=== PATIENT | male | born 1990 | race Caucasian/White ===

== ENCOUNTER 2021-05-28 10:01 | Emergency (ER) | payer BC ==
--- NOTE | 2021-05-28 10:40 | EDM.PDOC ---
ED HPI GENERAL MEDICAL PROBLEM - General Chief Complaint: General Stated Complaint: STROKE CODE Time Seen by Provider: 05/28/21 10:20 Source of Information: Reports: Patient, EMS History Limitations: Reports: No Limitations - History of Present Illness INITIAL COMMENTS - FREE TEXT/NARRATIVE: 31-year-old white male that presents via EMS after he was picked up on the roadside while he was driving after he called 911 secondary to ongoing bilateral hand bilateral feet numbness and lip numbness that started approximately 45 minutes or so prior to arrival while he was driving. He felt that the right side of his upper extremity was a little weak and then the numbness started then afterwards. He states now that the weakness is gone but the numbness is still there. He said he had a little bit of dizziness and lightheadedness today that lasted for a few minutes and then went away. Last night though he had a feeling of a fast heart rate and slightly elevated blood pressure 150/82 heart rate of 98 last night and said he had a headache that was about a 5 out of 10 in the middle of his head but he was able to lay down and it went away after 10 or 15 minutes he has no headache right now He states that he did get his Covid shot Saturday but did not have any problems afterwards He has no medical problems takes no medication does not smoke does not use any drugs he states he did have one drink at noon yesterday He has no other complaints at this time he has no family history of any stroke or hypertension or coronary artery disease Onset: Today, Sudden Duration: Hour(s): Associated Symptoms: Reports: Weakness. Denies: Confusion, Chest Pain, Cough, cough w sputum, Diaphoresis, Fever/Chills, Headaches, Loss of Appetite, Shortness of Breath ED ROS GENERAL - Review of Systems Review Of Systems: See Below Constitutional: Reports: No Symptoms HEENT: Reports: No Symptoms Respiratory: Reports: No Symptoms Cardiovascular: Reports: Lightheadedness, Other (Denies palpitations positive for fast heart rate) Endocrine: Reports: No Symptoms GI/Abdominal: Reports: No Symptoms : Reports: No Symptoms Musculoskeletal: Denies: Hand Pain, Muscle Pain, Muscle Stiffness Skin: Reports: No Symptoms Neurological: Reports: Dizziness, Headache, Numbness. Denies: Confusion, Paresthesia, Pre-Existing Deficit, Seizure, Syncope, Tingling, Difficulty Walking, Weakness Psychiatric: Reports: No Symptoms Hematologic/Lymphatic: Reports: No Symptoms Immunologic: Reports: No Symptoms ED EXAM, NEURO - Physical Exam Exam: See Below Exam Limited By: No Limitations General Appearance: Alert, WD/WN, No Apparent Distress, Other (Patient appears alert and is able to move his self from the EMS stretcher over to the bed ) Eye Exam: Bilateral Eye: EOMI, Normal Inspection, PERRL Ears: Normal External Exam, Normal Canal, Hearing Grossly Normal, Normal TMs Nose: Normal Inspection, Normal Mucosa, No Blood Throat/Mouth: Normal Inspection, Normal Lips, Normal Teeth, Normal Gums, Normal Oropharynx, Normal Voice Head Exam: Atraumatic, Normocephalic Neck: Normal Inspection, Supple, Non-Tender, Full Range of Motion Respiratory/Chest: No Respiratory Distress, Lungs Clear, Normal Breath Sounds, No Accessory Muscle Use, Chest Non-Tender Cardiovascular: Normal Peripheral Pulses, Regular Rate, Rhythm, No Edema, No Gallop, No JVD, No Murmur, No Rub GI/Abdominal: Normal Bowel Sounds, Soft, Non-Tender, No Organomegaly, No Distention. No: Guarding, Rigid, Rebound, Tender Neurological: Alert, Normal Mood/Affect, Normal Dorsiflexion, CN II-XII Intact, Normal Plantar Flexion, Normal Gait, Normal Reflexes, No Motor/Sensory Deficits, Oriented x 3, Other (Patient has no pronator sway equal bending shed worker bilateral strength is graded 5 of 5 upper lower extremity bilateral he has equal facial sensation 2+ DTR no weakness noted) Extremities: Normal Inspection, Normal Range of Motion, Non-Tender, No Pedal Edema, Normal Capillary Refill Psychiatric: Normal Affect, Normal Mood Skin Exam: Warm, Dry, Intact, Normal Color, No Rash *Q Meaningful Use (ADM) - VTE *Q VTE Criteria *Q: Patient has no risk factors do not believe this is stroke related - VTE Risk Assess *Q Each Risk Factor Represents 1 Point: None Total Score 1 Point Risk Factors: 0 Each Risk Factor Represents 2 Points: None Total Score 2 Point Risk Factors: 0 Each Risk Factor Represents 3 Points: None Total Score 3 Point Risk Factors: 0 Each Risk Factor Represents 5 Points: None Total Score 5 Point Risk Factors: 0 Venous Thromboembolism Risk Factor Score *Q: 0 Course - Vital Signs Text/Narrative:: CT head without contrast CBC BMP coags EKG STAR stroke scale 0 Per radiology no acute findings on CT head CBC within normal limits BMP electrolytes within normal limits anion gap is 22 glucose 119 1 L normal saline bolus rechecked patient 0 again on stroke scale after speaking with the neurologist he also agrees this is not stroke symptoms second bag normal saline given patient will be discharged when his father arrives here at the hospital Spoke with Dr. PARR stroke neurology at 1140 does not believe this is stroke related may possibly be migraine related or possible seizure can be followed up worked up outpatient have them call the office for an appointment [phone] Last Recorded V/S: Last Vital Signs Temp 37.2 C 05/28/21 10:59 Pulse 96 05/28/21 10:59 Resp 18 05/28/21 10:59 BP 113/60 05/28/21 10:59 Pulse Ox 98 05/28/21 10:59 - Orders/Labs/Meds Orders: Active Orders 24 hr Category Date Time Status EKG 12 Lead [EKG Documentation Completion] [RC] STAT Care 05/28/21 10:33 Active Labs: Laboratory Tests 05/28/21 05/28/21 05/28/21 Range/Units 10:28 10:28 10:28 WBC 7.6 (4.0-10.0) x10^3/uL RBC 5.77 (4.5-6.0) x10^6/uL Hgb 16.4 (14.0-18.0) g/dL Hct 45.9 (40.0-52.0) % MCV 79.5 (78.0-93.0) fL MCH 28.4 (26.0-32.0) pg MCHC 35.7 (32.0-36.0) g/dL RDW Coeff of Margy 12.3 (10.0-15.0) % Plt Count 288 (130-400) x10^3/uL Immature Gran % (Auto) 0.00 (0.00-0.43) % Neut % (Auto) 75.5 (50.0-80.0) % Lymph % (Auto) 17.3 L (25.0-50.0) % [place] % (Auto) 6.4 (2.0-11.0) % Eos % (Auto) 0.3 (0.0-4.0) % Baso % (Auto) 0.5 (0.2-1.2) % Neut # (Auto) 5.8 (1.8-7.7) x10^3/uL Lymph # (Auto) 1.3 (1.0-4.8) x10^3/uL [place] # (Auto) 0.5 (0.0-0.8) x10^3/uL Eos # (Auto) 0.0 (0.0-0.5) x10^3/uL Baso # (Auto) 0.0 (0.0-0.2) x10^3/uL Immature Gran # (Auto) 0.00 (0.00-0.07) x10^3/uL PT 11.1 (9.9-12.5) SEC INR 1.0 L (2.0-3.5) Sodium 143 (136-145) mmol/L Potassium 3.5 (3.5-5.1) mmol/L Chloride 104 (98-107) mmol/L Carbon Dioxide 20 L (21-32) mmol/L Anion Gap 22.5 H (5-15) mmol/L BUN 15 (7-18) mg/dL Creatinine 1.2 (0.70-1.30) mg/dL Est Cr Clr Drug Dosing TNP Estimated GFR (MDRD) > 60 Glucose 119 H (70-99) mg/dL Calcium 9.6 (8.5-10.1) mg/dL Departure - Departure Time of Disposition: 11:50 Disposition: Home, Self-Care 01 Preliminary Cause of *Q: Other_Special Instruction (Patient is alive and well) Condition: Good Clinical Impression: Weakness, Numbness - Discharge Information *PRESCRIPTION DRUG MONITORING PROGRAM REVIEWED*: No *COPY OF PRESCRIPTION DRUG MONITORING REPORT IN PATIENT TALI: No Referrals: Buddy Vasquez MD [Primary Care Provider] - Forms: ED Department Discharge Sepsis Event Note (ED) - Focused Exam Vital Signs: Vital Signs Temp Pulse Resp BP Pulse Ox 05/28/21 10:59 37.2 C 96 18 113/60 98 - Problem List & Annotations (1) Numbness SNOMED Code(s): 02413650 Code(s): R20.0 - ANESTHESIA OF SKIN Status: Acute Current Visit: Yes (2) Weakness SNOMED Code(s): 88322922 Code(s): R53.1 - WEAKNESS Status: Acute Current Visit: Yes - My Orders Last 24 Hours: My Active Orders 05/28/21 10:33 EKG 12 Lead [EKG Documentation Completion] [RC] STAT - Assessment/Plan Last 24 Hours: My Active Orders 05/28/21 10:33 EKG 12 Lead [EKG Documentation Completion] [RC] STAT
[2021-05-28 10:45] LABS: CHLORIDE,CL 104 mmol/L (98-107); SODIUM,NA 143 mmol/L (136-145)
[2021-05-28 10:46] LABS: ANION GAP 22.5 mmol/L (5-15)
--- NOTE | 2021-05-28 11:36 | CT ---
[id number] CT/CT Head Stroke Protocol EXAM: CT Head Stroke Protocol CLINICAL DATA: QUESTION WEAKNESS RIGHT ARM, HAND. COMPARISON STUDY: None FINDINGS: No intracranial hemorrhage, extra-axial fluid collection, mass, or acute ischemia. Soft tissues are unremarkable. Paranasal sinuses and mastoid air cells are clear. IMPRESSION: No acute intracranial findings. Memo Ambriz DO 05/28/21 1135 Thank you for allowing us to participate in the care of your patient.
== END 2021-05-28 12:33 | disposition home or self-care (01) ==
LOC: VM.ED 10:01
DX: R20.0 Anesthesia of skin (principal); R53.1 Weakness
CPT/HCPCS: 70450; 80048; 85025; 85610; 93005; 99284; 99285-25

== ENCOUNTER 2021-06-16 14:28 | Emergency (ER) | payer BC ==
--- NOTE | 2021-06-16 14:50 | EDM.PDOC ---
ED HPI GENERAL MEDICAL PROBLEM - General Chief Complaint: Cardiovascular Problem Stated Complaint: NUMNESS IN THE RT ARM Time Seen by Provider: 06/16/21 14:33 Source of Information: Reports: Patient History Limitations: Reports: No Limitations - History of Present Illness INITIAL COMMENTS - FREE TEXT/NARRATIVE: Moises is a 31 year old male who presents to ER with complaints of elevated blood pressure, headache and left arm numbness. States since he had his covid vaccine 3 weeks ago, has had intermittent symptoms of this. At times, will have bilateral headache, lasts a short time and then goes away. Describes headache as a numbness around his left eye. Left arm also feels numb but has good range of motion and sensation. Blood pressure at home was 147 systolic, relates high for him. Was seen in the ER 3 weeks ago as was driving and felt like his arms and legs were going numb. Had work up that included a CT, NIH score was 0, no abnormal findings found. Was advised to contact neurology if symptoms persisted. has an appointment with his usual doctor on Saturday in [place] for follow up. Currently on no medications. Has noted that caffeine is limiting to him since the vaccine as will cause his heart rate to race and had never done that before. No shortness of breath. No nausea/vomiting or abdominal pain. No double or blurred vision. No sore throat, sinus congestion or fever. No urinary symptoms. Onset: Today, Gradual Duration: Week(s):, Waxing/Waning Location: Reports: Head, Upper Extremity, Left Quality: Reports: Other (numbness) Associated Symptoms: Reports: Confusion (states slow to process or concentrate at times). Denies: Chest Pain, Cough, Fever/Chills, Loss of Appetite, Nausea/Vomiting, Shortness of Breath Headache Pain Score (Numeric/FACES): 3 - Related Data Allergies Allergy/AdvReac Type Severity Reaction Status Date / Time No Known Allergies Allergy Verified 06/16/21 15:09 Home Meds: Home Meds . [No Known Home Meds] 06/16/21 [History] Past Medical History - Past Health History Medical/Surgical History: Denies Medical/Surgical History Social & Family History - Tobacco Use Tobacco Use Status *Q: Never Tobacco User ED ROS GENERAL - Review of Systems Review Of Systems: See Below Constitutional: Reports: Malaise. Denies: Fever, Chills, Weakness, Fatigue, Decreased Appetite HEENT: Denies: Ear Pain, Rhinitis, Sinus Problem, Throat Pain, Vision Change Respiratory: Denies: Shortness of Breath, Cough Cardiovascular: Denies: Chest Pain, Edema, Lightheadedness Endocrine: Denies: Fatigue GI/Abdominal: Denies: Abdominal Pain, Nausea, Vomiting : Reports: No Symptoms Musculoskeletal: Reports: No Symptoms Skin: Reports: No Symptoms Neurological: Reports: Numbness (left arm and face) ED EXAM, GENERAL - Physical Exam Exam: See Below Exam Limited By: No Limitations General Appearance: Alert, WD/WN, No Apparent Distress Eye Exam: Bilateral Eye: EOMI, PERRL Ears: Normal External Exam, Normal TMs Nose: Normal Inspection, Normal Mucosa, No Blood Throat/Mouth: Normal Inspection, Normal Oropharynx Head: Normocephalic Neck: Normal Inspection, Supple, Non-Tender Respiratory/Chest: No Respiratory Distress, Lungs Clear, Normal Breath Sounds Cardiovascular: Regular Rate, Rhythm GI/Abdominal: Normal Bowel Sounds, Soft, Non-Tender Extremities: Normal Inspection, Normal Range of Motion, No Pedal Edema, Other (strengths are equal bilaterally. ) Neurological: Alert, Oriented, CN II-XII Intact, Normal Cognition, Normal Gait, Normal Reflexes, No Motor/Sensory Deficits, Other (is slow to enunciate his concerns at times but oriented and answers all questions appropriately) Psychiatric: Anxious Skin Exam: Warm, Dry #1 Interpretation EKG Date: 06/16/21 Rhythm: NSR [place]: Normal P-Wave: Present QRS: Normal ST-T: Normal QT: Normal Comparison: Change From Previous EKG (PVCs resolved today in comparison to EKG from the ) Course - Vital Signs Last Recorded V/S: Last Vital Signs Temp 97.2 F 06/16/21 14:35 Pulse 82 06/16/21 15:34 Resp 16 06/16/21 15:34 BP 150/84 H 06/16/21 15:34 Pulse Ox 98 06/16/21 14:35 - Orders/Labs/Meds Labs: Laboratory Tests 06/16/21 06/16/21 Range/Units 15:00 15:00 WBC 9.4 (4.0-10.0) x10^3/uL RBC 4.95 (4.5-6.0) x10^6/uL Hgb 14.2 D (14.0-18.0) g/dL Hct 40.9 (40.0-52.0) % MCV 82.6 D (78.0-93.0) fL MCH 28.7 (26.0-32.0) pg MCHC 34.7 (32.0-36.0) g/dL RDW Coeff of Margy 12.6 (10.0-15.0) % Plt Count 246 (130-400) x10^3/uL Immature Gran % (Auto) 0.10 (0.00-0.43) % Neut % (Auto) 63.7 (50.0-80.0) % Lymph % (Auto) 24.3 L (25.0-50.0) % [place] % (Auto) 9.5 (2.0-11.0) % Eos % (Auto) 1.9 (0.0-4.0) % Baso % (Auto) 0.5 (0.2-1.2) % Neut # (Auto) 6.0 (1.8-7.7) x10^3/uL Lymph # (Auto) 2.3 (1.0-4.8) x10^3/uL [place] # (Auto) 0.9 H (0.0-0.8) x10^3/uL Eos # (Auto) 0.2 (0.0-0.5) x10^3/uL Baso # (Auto) 0.1 (0.0-0.2) x10^3/uL Immature Gran # (Auto) 0.01 (0.00-0.07) x10^3/uL Sodium 144 (136-145) mmol/L Potassium 3.7 (3.5-5.1) mmol/L Chloride 105 (98-107) mmol/L Carbon Dioxide 27 (21-32) mmol/L Anion Gap 15.7 H (5-15) mmol/L BUN 13 (7-18) mg/dL Creatinine 1.1 (0.70-1.30) mg/dL Est Cr Clr Drug Dosing 95.52 mL/min Estimated GFR (MDRD) > 60 Glucose 96 (70-99) mg/dL Calcium 8.8 (8.5-10.1) mg/dL Corrected Calcium 8.9 (8.5-10.1) mg/dL Total Bilirubin 0.3 (0.2-1.0) mg/dL AST 16 (15-37) U/L ALT 22 (16-63) U/L Alkaline Phosphatase 61 (46-116) U/L Lactate Dehydrogenase 161 (85-227) U/L Creatine Kinase 113 (39-308) U/L Troponin I High Sens 5 (<=76) ng/L C-Reactive Protein < 0.2 (<=0.9) mg/dL Total Protein 7.1 (6.4-8.2) g/dL Albumin 3.9 (3.4-5.0) g/dL Globulin 3.2 Albumin/Globulin Ratio 1.22 - Re-Assessments/Exams Free Text/Narrative Re-Assessment/Exam: 06/16/21 15:38 Patient called as felt arm "was going to blow off" from the blood draw. Blood pressure taken and normal on that arm. No signs of swelling or bleedin g/bruising. Patient is concerned that could get myocarditis or have something wrong with his autonomic nervous system from the vaccine. Discussed anxiety and issues it causes with elevation of blood pressure. Advised to not take frequently throughout day as will likely keep increasing from the stressor of it. Labs are all normal. EKG normal. Advised to follow up with his primary and can determine if more testing is needed depending on persistent symptoms. Reassurance from an emergency stand point that everything appears normal today. Departure - Departure Time of Disposition: 15:41 Disposition: Home, Self-Care 01 Clinical Impression: Arm numbness left Instructions: General Headache Without Cause, [id number] Forms: ED Department Discharge Additional Instructions: 1. Rest 2. Push fluids 3. Avoid excessive caffeine, salt, alcohol as may cause increase in blood pressure. 4. Follow up with Dr. Rodriguez as planned as may need further testing to rule out migraine, impingement causing arm numbness, any cardiac concerns Sepsis Event Note (ED) - Focused Exam Vital Signs: Vital Signs Temp Pulse Resp BP Pulse Ox 06/16/21 15:34 82 16 150/84 H 06/16/21 14:55 61 142/72 H 06/16/21 14:35 97.2 F 87 16 159/78 H 98
[2021-06-16 15:29] LABS: CHLORIDE,CL 105 mmol/L (98-107); SODIUM,NA 144 mmol/L (136-145)
[2021-06-16 15:32] LABS: ANION GAP 15.7 mmol/L (5-15)
== END 2021-06-16 16:00 | disposition home or self-care (01) ==
LOC: VM.ED 14:28
DX: R20.0 Anesthesia of skin (principal)
CPT/HCPCS: 36415; 80053; 82550; 83615; 84484; 85025; 86140; 93005; 99284-25

== ENCOUNTER 2021-06-22 23:45 | Emergency (ER) | payer BC ==
--- NOTE | 2021-06-23 00:51 | EDM.PDOC ---
ED HPI GENERAL MEDICAL PROBLEM - General Chief Complaint: Chest Pain Stated Complaint: Palpitations Time Seen by Provider: 06/23/21 00:25 Source of Information: Reports: Patient History Limitations: Reports: No Limitations - History of Present Illness INITIAL COMMENTS - FREE TEXT/NARRATIVE: Patient states he was at home tonight about 8:00 he was doing some yard and stuff in the shop and thought he might work out for a bit just do some calisthenics. He states after that he was getting ready to go to bed lay down started feeling like his heart was racing and he was having palpitations. He has had the same type of episode multiple times before and was actually seen in the ER approximately 1 month ago for the same things and was discharged home. He has been seeing his primary care provider for the palpitations as well and has been set up with a compliance consultant for an echo coming up he states he had a lot of lab work but is not had a Holter monitor. He said this occurs on and off but tonight when he was laying in bed he could just feel his heart beating states it was not going extremely fast but faster than his normal he states his normal heart rates in the 80s. He says he laid there for a few hours but could not go to sleep he denies any chest pain shortness of breath syncopal or near syncopal episodes no lightheadedness or dizziness he does admit he had a little bit of caffeine today about 5:00 and has not had any caffeine for a while until today. He has no family history of any heart issues Duration: Hour(s):, Chronic Severity: Mild Worsens with: Reports: Other (Laying in bed and caffeine) Associated Symptoms: Reports: No Other Symptoms - Related Data Allergies Allergy/AdvReac Type Severity Reaction Status Date / Time No Known Allergies Allergy Verified 06/16/21 15:09 Home Meds: Home Meds . [No Known Home Meds] 06/16/21 [History] Past Medical History - Past Health History Medical/Surgical History: Denies Medical/Surgical History - Infectious Disease History Infectious Disease History: Reports: None ED ROS GENERAL - Review of Systems Review Of Systems: See Below Constitutional: Reports: No Symptoms HEENT: Reports: No Symptoms Respiratory: Reports: No Symptoms Cardiovascular: Reports: Palpitations. Denies: Chest Pain, Blood Pressure Problem, Dyspnea on Exertion, Edema, Lightheadedness, Orthopnea, Syncope Endocrine: Reports: No Symptoms GI/Abdominal: Reports: No Symptoms : Reports: No Symptoms Musculoskeletal: Reports: No Symptoms Skin: Reports: No Symptoms Neurological: Reports: No Symptoms Psychiatric: Reports: No Symptoms Hematologic/Lymphatic: Reports: No Symptoms Immunologic: Reports: No Symptoms ED EXAM, GENERAL - Physical Exam Exam: See Below Exam Limited By: No Limitations General Appearance: Alert, WD/WN, No Apparent Distress, Other (Upon entering the room patient's heart rate was in the 80s on the monitor) Eye Exam: Bilateral Eye: Normal Inspection Nose: Normal Inspection, Normal Mucosa Throat/Mouth: Normal Inspection, Normal Lips, Normal Teeth, Normal Gums, Normal Oropharynx, Normal Voice, No Airway Compromise Neck: Normal Inspection, Supple, Non-Tender, Full Range of Motion, Other (No thyroid megaly appreciated) Respiratory/Chest: No Respiratory Distress, Lungs Clear, Normal Breath Sounds, No Accessory Muscle Use Cardiovascular: Normal Peripheral Pulses, Regular Rate, Rhythm, No Edema, No Gallop, No JVD, No Murmur, No Rub. No: Tachycardia, Extra Beats, Irregularly Irregular GI/Abdominal: Normal Bowel Sounds, Soft, Non-Tender, No Organomegaly, No Distention Back Exam: Full Range of Motion Extremities: Normal Inspection, Normal Range of Motion, Non-Tender, Normal Capillary Refill Neurological: Alert, Oriented, CN II-XII Intact, Normal Cognition, Normal Gait, No Motor/Sensory Deficits Psychiatric: Normal Affect, Normal Mood Skin Exam: Warm, Dry, Intact, Normal Color, No Rash #1 Interpretation EKG Date: 06/23/21 Time: 11:55 Rhythm: NSR [place]: Normal P-Wave: Present QRS: Normal ST-T: Normal QT: Normal Course - Vital Signs Text/Narrative:: Patient will be given 50 mg Atarax p.o. told to follow-up with his primary care provider and compliance consultant as directed Departure - Departure Time of Disposition: 01:00 Disposition: Home, Self-Care 01 Condition: Good Clinical Impression: Palpitations Referrals: PCP,None [Primary Care Provider] - - Problem List & Annotations (1) Palpitations SNOMED Code(s): 53397208 Code(s): R00.2 - PALPITATIONS Status: Acute Current Visit: Yes
[2021-06-23] MEDS ORDERED: hydrOXYzine HCl 25 MG Tab PO ONE (00:53)
[2021-06-23] MEDS ORDERED: hydrOXYzine HCl 25 MG Tab ONE (01:00)
== END 2021-06-23 01:11 | disposition home or self-care (01) ==
LOC: VM.ED 23:45
DX: R00.2 Palpitations (principal)
CPT/HCPCS: 93005; 99284-25; A9270-GY

== ENCOUNTER 2021-06-27 13:27 | Emergency (ER) | payer BC ==
[2021-06-27 14:19] LABS: BARBITURATE SCREEN,URINE NEGATIVE (NEGATIVE); BENZODIAZEPINES SCREEN,URINE NEGATIVE (NEGATIVE); METHAMPHETAMINE SCREEN, URINE NEGATIVE (NEGATIVE); THC SCREEN,URINE 50 NG/ML NEGATIVE (NEGATIVE)
[2021-06-27 14:20] LABS: BUPRENORPHINE SCREEN,URINE NEGATIVE (NEGATIVE)
[2021-06-27 14:47] LABS: CHLORIDE,CL 100 mmol/L (98-107); SODIUM,NA 137 mmol/L (136-145)
[2021-06-27 14:53] LABS: ANION GAP 15.6 mmol/L (5-15)
--- NOTE | 2021-06-27 15:04 | EDM.PDOC ---
ED HPI GENERAL MEDICAL PROBLEM - General Chief Complaint: Cardiovascular Problem Stated Complaint: FEELING UNWELL Time Seen by Provider: 06/27/21 13:50 Source of Information: Reports: Patient History Limitations: Reports: No Limitations - History of Present Illness INITIAL COMMENTS - FREE TEXT/NARRATIVE: Patient comes emergency department today from home with concerns of not sl eeping. This patient over the past proximately 2 months has had quite a few ER visits as well as primary care visits following his Covid vaccination. He has had multiple episodes of what he relates is paresthesias to his hands and feet. These are intermittent. He relates these paresthesias to his Covid vaccination. Has been seen in the emergency department and primarily treated with anxiolyti cs with improvement of his symptoms. Today he comes to the emergency department because the last 2 nights he has not been able to sleep. He relates that when he goes to bed he falls asleep immediately and sleeps for only 2 to 3 minutes. He denies any rumination thought pattern disturbance. He denies any anxiety or depression. He has not had no change in his medications or routine in his sleep . He is very concerned that when he falls asleep he has some jolting type sensation to his arms and his legs which she has chronically had for his entire life but now he identifies him as concerning because he thinks his Covid vaccine is causing these jolts of his extremities that he has had his entire life although his first Covid vaccine was just 2 months ago. He denies any worrying or anxiety. No depression. No other cause of his 2 nights where one night he slept for 6 hours and the other night he slept for 3 hours he woke up feeling well rested - Related Data Allergies Allergy/AdvReac Type Severity Reaction Status Date / Time No Known Allergies Allergy Verified 06/27/21 13:42 Home Meds: Home Meds traZODone 50 mg PO BEDTIME #5 tab 06/27/21 [Rx] Past Medical History - Past Health History Medical/Surgical History: Denies Medical/Surgical History - Infectious Disease History Infectious Disease History: Reports: None Social & Family History - Tobacco Use Tobacco Use Status *Q: Never Tobacco User ED ROS GENERAL - Review of Systems Review Of Systems: Comprehensive ROS is negative, except as noted in HPI. ED EXAM, GENERAL - Physical Exam Exam: See Below Exam Limited By: No Limitations General Appearance: Alert, WD/WN, No Apparent Distress Ears: Normal External Exam Nose: Normal Inspection, Normal Mucosa Throat/Mouth: Normal Inspection Head: Atraumatic, Normocephalic Neck: Normal Inspection, Supple, Non-Tender, Full Range of Motion Respiratory/Chest: No Respiratory Distress, Lungs Clear, Normal Breath Sounds, No Accessory Muscle Use, Chest Non-Tender Cardiovascular: Normal Peripheral Pulses, Regular Rate, Rhythm GI/Abdominal: Normal Bowel Sounds, Soft, Non-Tender (Male) Exam: Deferred Rectal (Males) Exam: Deferred Back Exam: Normal Inspection Extremities: Normal Inspection, Normal Range of Motion, Non-Tender, No Pedal Edema, Normal Capillary Refill Neurological: Alert, Oriented, Normal Cognition, No Motor/Sensory Deficits Psychiatric: Anxious Skin Exam: Warm, Dry, Intact, Normal Color, No Rash Course - Vital Signs Last Recorded V/S: Last Vital Signs Temp 98.7 F 06/27/21 13:33 Pulse 77 06/27/21 13:33 Resp 20 06/27/21 13:33 BP 132/79 06/27/21 13:33 Pulse Ox 98 06/27/21 13:33 - Orders/Labs/Meds Labs: Laboratory Tests 06/27/21 06/27/21 06/27/21 Range/Units 14:08 14:08 14:13 WBC 8.7 (4.0-10.0) x10^3/uL RBC 5.01 (4.5-6.0) x10^6/uL Hgb 14.1 (14.0-18.0) g/dL Hct 40.7 (40.0-52.0) % MCV 81.2 (78.0-93.0) fL MCH 28.1 (26.0-32.0) pg MCHC 34.6 (32.0-36.0) g/dL RDW Coeff of Margy 12.2 (10.0-15.0) % Plt Count 277 (130-400) x10^3/uL Immature Gran % (Auto) 0.00 (0.00-0.43) % Neut % (Auto) 69.1 (50.0-80.0) % Lymph % (Auto) 19.5 L (25.0-50.0) % Price % (Auto) 10.4 (2.0-11.0) % Eos % (Auto) 0.7 (0.0-4.0) % Baso % (Auto) 0.3 (0.2-1.2) % Neut # (Auto) 6.0 (1.8-7.7) x10^3/uL Lymph # (Auto) 1.7 (1.0-4.8) x10^3/uL Price # (Auto) 0.9 H (0.0-0.8) x10^3/uL Eos # (Auto) 0.1 (0.0-0.5) x10^3/uL Baso # (Auto) 0.0 (0.0-0.2) x10^3/uL Immature Gran # (Auto) 0.00 (0.00-0.07) x10^3/uL Sodium (136-145) mmol/L Potassium (3.5-5.1) mmol/L Chloride (98-107) mmol/L Carbon Dioxide (21-32) mmol/L Anion Gap (5-15) mmol/L BUN (7-18) mg/dL Creatinine (0.70-1.30) mg/dL Est Cr Clr Drug Dosing Estimated GFR (MDRD) Glucose (70-99) mg/dL Calcium (8.5-10.1) mg/dL Magnesium (1.8-2.4) mg/dL Iron (50-150) ug/dL C-Reactive Protein (<=0.9) mg/dL TSH, Ultra Sensitive (0.358-3.74) uIU/mL Urine Opiates Screen Negative (NEGATIVE) Ur Buprenorphine Scrn Negative (NEGATIVE) Ur Oxycodone Screen Negative (NEGATIVE) Urine Methadone Screen Negative (NEGATIVE) Ur Barbiturates Screen Negative (NEGATIVE) Ur Phencyclidine Scrn Negative (NEGATIVE) Ur Amphetamine Screen Negative (NEGATIVE) U Methamphetamines Scrn Negative (NEGATIVE) Urine MDMA Screen Negative (NEGATIVE) U Benzodiazepines Scrn Negative (NEGATIVE) U Cocaine Metab Screen Negative (NEGATIVE) U Marijuana (THC) Screen Negative (NEGATIVE) SARS CoV-2 RNA Rapid YVETTE Negative (NEGATIVE) 06/27/21 06/27/21 Range/Units 14:13 14:13 WBC (4.0-10.0) x10^3/uL RBC (4.5-6.0) x10^6/uL Hgb (14.0-18.0) g/dL Hct (40.0-52.0) % MCV (78.0-93.0) fL MCH (26.0-32.0) pg MCHC (32.0-36.0) g/dL RDW Coeff of Margy (10.0-15.0) % Plt Count (130-400) x10^3/uL Immature Gran % (Auto) (0.00-0.43) % Neut % (Auto) (50.0-80.0) % Lymph % (Auto) (25.0-50.0) % Price % (Auto) (2.0-11.0) % Eos % (Auto) (0.0-4.0) % Baso % (Auto) (0.2-1.2) % Neut # (Auto) (1.8-7.7) x10^3/uL Lymph # (Auto) (1.0-4.8) x10^3/uL Price # (Auto) (0.0-0.8) x10^3/uL Eos # (Auto) (0.0-0.5) x10^3/uL Baso # (Auto) (0.0-0.2) x10^3/uL Immature Gran # (Auto) (0.00-0.07) x10^3/uL Sodium 137 (136-145) mmol/L Potassium 3.6 (3.5-5.1) mmol/L Chloride 100 (98-107) mmol/L Carbon Dioxide 25 (21-32) mmol/L Anion Gap 15.6 H (5-15) mmol/L BUN 5 L (7-18) mg/dL Creatinine 0.9 (0.70-1.30) mg/dL Est Cr Clr Drug Dosing TNP Estimated GFR (MDRD) > 60 Glucose 91 (70-99) mg/dL Calcium 9.0 (8.5-10.1) mg/dL Magnesium 2.1 (1.8-2.4) mg/dL Iron 66 (50-150) ug/dL C-Reactive Protein < 0.2 (<=0.9) mg/dL TSH, Ultra Sensitive 1.601 (0.358-3.74) uIU/mL Urine Opiates Screen (NEGATIVE) Ur Buprenorphine Scrn (NEGATIVE) Ur Oxycodone Screen (NEGATIVE) Urine Methadone Screen (NEGATIVE) Ur Barbiturates Screen (NEGATIVE) Ur Phencyclidine Scrn (NEGATIVE) Ur Amphetamine Screen (NEGATIVE) U Methamphetamines Scrn (NEGATIVE) Urine MDMA Screen (NEGATIVE) U Benzodiazepines Scrn (NEGATIVE) U Cocaine Metab Screen (NEGATIVE) U Marijuana (THC) Screen (NEGATIVE) SARS CoV-2 RNA Rapid YVETTE (NEGATIVE) - Re-Assessments/Exams Free Text/Narrative Re-Assessment/Exam: Patient's laboratory evaluation is rather unremarkable. He has a negative Covid negative urine drug screen . I did have him complete a ALE-7 as well as a PHQ-9. His ALE-7 is 4, PHQ-9 is 5. Although I think that he is minimal lysing some moving his symptoms. He definitely has had some problem with the Covid vaccine although some of these complaints have been for years prior to his Covid vaccine. Really the important thing to do for sleep his sleep hygiene which I talked to him at length. Which she is very uninterested in making any changes or excepting sleep hygiene. We will try a short course of trazodone at this time. Although I think that sleep hygiene is paramount in the long-term management of sleep. He is comfortable this plan his questions are answered. Departure - Departure Time of Disposition: 14:57 Disposition: Home, Self-Care 01 Clinical Impression: Palpitations, Difficulty sleeping, Anxiety Prescriptions: traZODone 50 mg PO BEDTIME #5 tab Instructions: Palpitations, [id number], Managing Anxiety, Adult Referrals: Forest Rodriguez MD [Primary Care Provider] - Forms: ED Department Discharge Additional Instructions: We will try a short course of Trazodone for bedtime. Really work on your sleep hygiene. Regular routine. Same time every night. No back lit phones tablets 2 hours prior to bed. Decrease caffeine. Return to the ED if new or worsening symptoms. Follow up with PCP and consider anxiety testing.
== END 2021-06-27 15:30 | disposition home or self-care (01) ==
LOC: VM.ED 13:27
DX: R00.2 Palpitations (principal); G47.9 Sleep disorder, unspecified; F41.9 Anxiety disorder, unspecified; Z20.822 Contact with and (suspected) exposure to COVID-19
CPT/HCPCS: 36415; 80048; 80305-QW; 83540; 83735; 84443; 85025; 86140; 99284; U0002